=== PATIENT | male | born 1960 | race Caucasian/White ===

== ENCOUNTER → 2017-01-12 | Outpatient (CLI) | payer MEDICARE, OTHER ==
[~2017-01-12] MED LIST: ADVI200C9 PO; BACT2OIN TOP; CLON1 PO; COUG100S2 PO; DAYTIME COLD PO; DESENEX TOP; FISH1000 PO; FLU PO; HYDROGEN PEROXIDE 3% PO; LACT20SO4 PO; LEVE500 PO; LITH1TAB3 PO; LOPE2 PO; PROZ20CA11 PO; STOO100C PO; SUPETAB30 PO; ZIPR1CAP27 PO; [UNRECOGNIZED DRUG - OTHER] PR
--- NOTE | 2017-01-12 10:54 | RADRPT ---
EXAM DATE/TIME: 01/12/2017 00:00 [place] COMPARISON: BA SWALLOW W/SPEECH PATHOLOGY, July 16, 2014, 0:00. INDICATIONS : Dysphagia FLUORO TIME: 1.1 minutes IMAGE COUNT: 0 CONTRAST: Dose as prescribed by speech pathologist. MEDICAL HISTORY : lives in a longterm SURGICAL HISTORY : None. ENCOUNTER: Initial ACUITY: >1 year PAIN SCORE: Non-responsive. LOCATION: Bilateral neck FINDINGS: A modified barium swallow was performed with speech pathology. Patient was given a variety of liquids to swallow. There is no evidence of penetration or aspiration. For a full detailed report, see report by the speech pathologist. CONCLUSION: No evidence of aspiration or penetration. Manuel Mcdermott MD on January 12, 2017 at 10:52 Board Certified Radiologist. This report was verified electronically.
== END ==
LOC: HRAD 09:53
PROVIDERS: ATTEND Family Medicine
DX: R13.10 Dysphagia, unspecified (principal)
CPT/HCPCS: 74230; 92611; G8996; G8997; G8998